=== PATIENT | male | born 1995 | race Caucasian/White ===

== ENCOUNTER 2021-01-01 16:32 | Emergency (ER) | payer OTHER ==
[~2021-01-01] VITALS: Ht 172.7 cm; Wt 78.7 kg
[2021-01-01 16:49] VITALS: BP 180/61
[2021-01-01] MEDS ORDERED: ONDANSETRON PF 4 MG/2 ML VIAL. IVP ONE (17:00)
[2021-01-01] MEDS ORDERED: ACETAMINOPHEN 325 MG TABLET PO ONE (17:00)
[2021-01-01] MEDS ORDERED: IOHEXOL 300 MG/ML 75 ML VIAL. IV ONE (17:00)
[2021-01-01] MEDS ORDERED: IV NORMAL SALINE 1,000ML 1,000 ML IV SCH (17:00)
--- NOTE | 2021-01-01 17:00 | PHYS DOC ---
Past History Past Surgical History: No Surgical History (ROSALIO STEARNS APRN) General Adult EDM: Chief Complaint: ABDOMINAL PAIN HPI: HPI: Patient is a 25-year-old male being seen in the ER for right lower quadrant abdominal pain that started today. Patient reports the pain radiates into his pelvis. He rates it 6 out of 10. Is worse with movement. No relieving factors. No treatment prior to arrival. Patient is also reporting fever and nausea. Patient denies vomiting, diarrhea, blood in stools, dysuria, hematuria, history of kidney stones. (ROSALIO STEARNS APRN) Review of Systems: Review of Systems: 14 body systems of the review of systems have been reviewed. See HPI for pertinent positive and negative responses, otherwise all other systems are negative, nonpertinent or noncontributory (ROSALIO STEARNS APRN) Allergies: Allergies: Allergies Coded Allergies Type Severity Reaction Last Updated Verified No Known Drug Allergies 01/01/21 No (ROSALIO STEARNS APRN) Physical Exam: PE: Constitutional: Well developed, well nourished, no acute distress, non-toxic appearance. [] HENT: Normocephalic, atraumatic, bilateral external ears normal, oropharynx moist, no oral exudates, nose normal. [] Eyes: PERRL, EOMI, conjunctiva normal, no discharge. [] Neck: Normal range of motion, no stridor Cardiovascular:Heart rate regular rhythm, no murmur [] Lungs & Thorax: Bilateral breath sounds clear to auscultation [] Abdomen: Bowel sounds normal, soft, right lower quadrant tenderness with palpation, negative Orange sign, negative Rovsing sign, no masses, no pulsatile masses. [] Skin: Warm, dry, no erythema, no rash. [] Back: No tenderness, bilateral CVA tenderness. [] Extremities: No tenderness, no cyanosis, no clubbing, ROM intact, no edema. [] Neurologic: Alert and oriented X 3, normal motor function, normal sensory function, no focal deficits noted. [] Psychologic: Affect normal, judgement normal, mood normal. [] (ROSALIO STEARNS APRN) Current Patient Data: Labs: Laboratory Tests Test 01/01/21 17:05 White Blood Count 11.8 x10^3/uL Red Blood Count 4.34 x10^6/uL Hemoglobin 13.9 g/dL Hematocrit 40.5 % Mean Corpuscular Volume 93 fL Mean Corpuscular Hemoglobin 32 pg Mean Corpuscular Hemoglobin Concent 34 g/dL Red Cell Distribution Width 12.9 % Platelet Count 226 x10^3/uL Neutrophils (%) (Auto) 91 % Lymphocytes (%) (Auto) 4 % Monocytes (%) (Auto) 4 % Eosinophils (%) (Auto) 0 % Basophils (%) (Auto) 0 % Neutrophils # (Auto) 10.7 x10^3uL Lymphocytes # (Auto) 0.5 x10^3/uL Monocytes # (Auto) 0.5 x10^3/uL Eosinophils # (Auto) 0.0 x10^3/uL Basophils # (Auto) 0.0 x10^3/uL Sodium Level 136 mmol/L Potassium Level 4.0 mmol/L Chloride Level 102 mmol/L Carbon Dioxide Level 25 mmol/L Anion Gap 9 Blood Urea Nitrogen 24 mg/dL Creatinine 1.2 mg/dL Estimated GFR (Cockcroft-Gault) 74.4 BUN/Creatinine Ratio 20 Glucose Level 115 mg/dL Calcium Level 8.8 mg/dL Total Bilirubin 0.6 mg/dL Aspartate Amino Transf (AST/SGOT) 45 U/L Alanine Aminotransferase (ALT/SGPT) 65 U/L Alkaline Phosphatase 99 U/L Total Protein 7.0 g/dL Albumin 4.1 g/dL Albumin/Globulin Ratio 1.4 Lipase 118 U/L Current Medications Medications (Trade) Dose Ordered Sig/Carlie Route PRN Reason Start Time Stop Time Status Last Admin Dose Admin Fentanyl Citrate (Fentanyl 2ml Vial) 50 mcg PRN Q15MIN PRN IV PAIN GREATER THAN 3/10 01/01/21 17:00 01/02/21 16:59 01/01/21 17:33 Sodium Chloride 1,000 ml @ 1,000 mls/hr Q1H IV 01/01/21 17:00 01/01/21 17:59 01/01/21 17:32 Ondansetron HCl (Zofran) 4 mg 1X ONCE IVP 01/01/21 17:00 01/01/21 17:03 DC 01/01/21 17:33 Acetaminophen (Tylenol) 650 mg 1X ONCE PO 01/01/21 17:00 01/01/21 17:03 DC 01/01/21 17:33 Iohexol (Omnipaque 300 Mg/ml) 75 ml 1X ONCE IV 01/01/21 17:00 01/01/21 17:03 DC 01/01/21 17:15 Info (Do NOT chart on this entry -- for MONITORING) 1 each PRN DAILY PRN MC SEE COMMENTS 01/01/21 17:15 01/03/21 17:14 Vital Signs: Vital Signs Date Time Temp Pulse Resp B/P (MAP) Pulse Ox O2 Delivery O2 Flow Rate FiO2 01/01/21 16:49 100.0 84 20 180/61 96 Room Air (ROSALIO STEARNS APRN) EKG: EKG: [] (ROSALIO STEARNS APRN) Radiology/Procedures: Radiology/Procedures: PROCEDURE: CT ABD PELV W/ IV CONTRST ONLY PQRS Compliance Statement: One or more of the following individualized dose reduction techniques were utilized for this examination: 1. Automated exposure control 2. Adjustment of the mA and/or kV according to patient size 3. Use of iterative reconstruction technique Exam performed: CT abdomen and pelvis with contrast HISTORY: Right lower quadrant abdominal pain DATE OF SERVICE: 01/01/2021. None available TECHNIQUE: Contiguous helical acquisitions are obtained through the abdomen and pelvis during intravenous administration of 75 cc of Omnipaque 300. Sagittal and coronal reformatted images are obtained and reviewed. FINDINGS: The lung bases are essentially clear. The visualized heart is normal. The liver, spleen, pancreas and gallbladder appear normal. Both adrenal glands and bilateral kidneys are normal in size with symmetric excretion of contrast via both kidneys. There is no hydronephrosis or nephrolithiasis. Aorta is normal in caliber without aneurysm. Small and large bowel loops are nondilated and unremarkable. There is scattered stool throughout the colon. Small portion of gas filled appendix is visualized, best seen on sagittal image 44 and 45/67, series 4. The urinary bladder is decompressed. The prostate gland, seminal vesicles and rectum appear normal. Interrogation of bone windows is unremarkable. IMPRESSION: No acute intra-abdominal or pelvic process seen. Scattered stool throughout the colon. Correlate clinically for constipation. Electronically signed by: Geeta Hooper MD (01/01/2021 5:49 PM) [facility] DICTATED AND SIGNED BY: GEETA HOOPER MD DATE: 01/01/21 1740 CC: ROSALIO STEARNS APRN; PCP,NO ~MTH0 0[] (ROSALIO STEARNS APRN) Heart Score: C/O Chest Pain: No Risk Factors: Risk Factors: DM, Current or recent (<one month) smoker, HTN, HLP, family history of CAD, obesity. Risk Scores: Score 0 - 3: 2.5% MACE over next 6 weeks - Discharge Home Score 4 - 6: 20.3% MACE over next 6 weeks - Admit for Clinical Observation Score 7 - 10: 72.7% MACE over next 6 weeks - Early Invasive Strategies (ROSALIO STEARNS APRN) Course & Med Decision Making: Course & Med Decision Making Pertinent Labs and Imaging studies reviewed. (See chart for details) [] Patient is a 25-year-old male being seen in the ER for right lower quadrant pain with nausea and a fever that started this afternoon. Work-up in the ER consisted of blood work, urinalysis, and CT scan of abdomen. Patient was treated with fluids, nausea medication, pain medication. Patient was noted to have mild leukocytosis with a white count of 11.8. Mild elevation in his liver enzymes. CT scan was negative for any acute findings. Due to patient's symptoms of nausea, fever, elevated liver enzymes he was tested for COVID-19 and will be notified of those results when they become available. I discussed with patient all findings and diagnostic testing as well as the need to follow-up with PCP for further evaluation and treatment or return to the ER if any new or worsening symptoms. Strict return precautions were also discussed at length. P atient voiced understanding and agreement with the plan. Patient is hemodynamically stable at the time of disposition. (ROSALIO STEARNS APRN) Course & Med Decision Making Did not see or evaluate patient. Agree with [employer]'s work-up and disposition per note. (CAMPOS BAH MD) Dragon Disclaimer: Dragon Disclaimer: This electronic medical record was generated, in whole or in part, using a voice recognition dictation system. (ROSALIO STEARNS APRN) Departure Departure: Impression: Primary Impression: Abdominal pain Qualified Codes: R10.31 - Right lower quadrant pain Additional Impression: Person under investigation for COVID-19 Disposition: HOME / SELF CARE / HOMELESS Condition: GOOD Referrals: PCP,NO (PCP) Patient Instructions: Abdominal Pain Additional Instructions: You were seen in the ER today for abdominal pain with nausea. You were noted to have a fever in the ER and this was treated. As we discussed, you had mild elevation in your liver enzymes. Given your symptoms of nausea, abdominal pain and elevated liver enzymes, you were tested for COVID-19. You will be notified of these results when they become available in approximately 2 days. Please follow isolation protocols at your facility. Continue to take Tylenol/ibuprofen for pain or fevers. You were noted to have some stool in your colon, so the addition of MiraLAX may be helpful to you. If you develop worsening of your abdominal pain, intractable nausea or vomiting, high fevers refractory to treatment, blood in your stools or vomit or any new or worsening concerns please return to the ER. EMERGENCY DEPARTMENT GENERAL DISCHARGE INSTRUCTIONS Thank you for coming to [facility] (ED) today and trusting us with you care. We trust that you had a positivie experience in our Emergency Department. If you wish to speak to the department management, you may call the director at [phone]. YOUR FOLLOW UP INSTRUCTIONS ARE FOLLOWS: 1. Do you have a private Doctor? If you do not have a private doctor, please ask for a resource list of physicians or clinics that may be able to assist you with follow up care. 2. The Emergency Physician has interpreted your x-rays. The X-Ray specialist will also review them. If there is a change in the findings, you will be notified in 48 hours when at all possible. 3. A lab test or culture has been done, your results will be reviewed and you will be notified if you need a change in treatment. ADDITIONAL INSTRUCTIONS AND INFORMATION: 1. Your care today has been supervised by a physician who is specially trained in emergency care. Many problems require more than one evaluation for a complete diagnosis and treatment. We recommend that you schedule your follow up appointment as recommended to ensure complete treatment of you illness or injury. If you are unable to obtain follow up care and continue to have a problem, or if your condition worsens, we recommend that you return to the ED. 2. We are not able to safely determine your condition over the phone nor are we able to give sound medical advice over the phone. For these safety reasons, if you call for medical advice we will ask you to come to the ED for further evaluation. 3. If you have any questions regarding these discharge instructions please call the ED at [phone]. SAFETY INFORMATION: In the interest of safety, wellness, and injury prevention; we encourage you to wear your sealbelt, if you smoke; quite smoking, and we encourage family to use a p rotective helmet for bicycling and other sporting events that present an increased risk for head injury. IF YOUR SYMPTOMS WORSEN OR NEW SYMPTOMS DEVELOP, OR YOU HAVE CONCERNS ABOUT YOUR CONDITION; OR IF YOUR CONDITION WORSENS WHILE YOU ARE WAITING FOR YOUR FOLLOW UP APPOINTMENT; EITHER CONTACT YOUR PRIMARY CARE DOCTOR, THE PHYSICIAN WHOSE NAME AND NUMBER YOU WERE GIVEN, OR RETURN TO THE ED IMMEDIATELY. ROSALIO STEARNS APRN Jan 01, 2021 17:00 CAMPOS BAH MD Jan 01, 2021 19:02
[2021-01-01] MEDS ORDERED: CONTRAST GIVEN. MC PRN (17:15)
[2021-01-01 17:20] LABS: BASO % 0 % (0-3); EOS % 0 % (0-3); HEMATOCRIT 40.5 % (39.0-53.0); HEMOGLOBIN 13.9 g/dL (13.0-17.5); LYMPH # 0.5 x10^3/uL (1.0-4.8); LYMPH % 4 % (24-48); MEAN CORPUSCULAR HEMOGLOBIN 32 pg (25-35); MEAN CORPUSCULAR HGB CONC 34 g/dL (31-37); MEAN CORPUSCULAR VOLUME 93 fL (79-100); MONO # 0.5 x10^3/uL (0.0-1.1); MONO % 4 % (0-9); NEUT # 10.7 x10^3uL (1.8-7.7); NEUT % 91 % (31-73); PLATELET COUNT 226 x10^3/uL (140-400); RED BLOOD COUNT 4.34 x10^6/uL (4.30-5.70); RED CELL DISTRIBUTION WIDTH 12.9 % (11.5-14.5); WHITE BLOOD COUNT 11.8 x10^3/uL (4.0-11.0)
[2021-01-01 17:27] LABS: CALCIUM 8.8 mg/dL (8.5-10.1); CREATININE 1.2 mg/dL (0.7-1.3); GFR 74.4
[2021-01-01 17:33] LABS: ALBUMIN 4.1 g/dL (3.4-5.0); ALBUMIN/GLOBULIN RATIO 1.4 (1.0-1.7); TOTAL BILIRUBIN 0.6 mg/dL (0.2-1.0)
--- NOTE | 2021-01-01 17:52 | RAD ---
PQRS Compliance Statement: One or more of the following individualized dose reduction techniques were utilized for this examinat ion: 1. Automated exposure control 2. Adjustment of the mA and/or kV according to patient size 3. Use of iterative reconstruction technique Exam performed: CT abdomen and pelvis with contrast HISTORY: Right lower quadrant abdominal pain DATE OF SERVICE: 01/01/2021. None available TECHNIQUE: Contiguous helical acquisitions are obtained through the abdomen and pelvis during intrave nous administration of 75 cc of Omnipaque 300. Sagittal and coronal reformatted images are obtained a nd reviewed. FINDINGS: The lung bases are essentially clear. The visualized heart is normal. The liver, spleen, pancreas and gallbladder appear normal. Both adrenal glands and bilateral kidneys are normal in size with symmetric excretion of contrast via both kidneys. There is no hydronephrosis or nephrolithiasis. Aorta is normal in caliber without aneurysm. Small and large bowel loops are nond ilated and unremarkable. There is scattered stool throughout the colon. Small portion of gas filled a ppendix is visualized, best seen on sagittal image 44 and 45/67, series 4. The urinary bladder is decompressed. The prostate gland, seminal vesicles and rectum appear normal. Interrogation of bone windows is unremarkable. IMPRESSION: No acute intra-abdominal or pelvic process seen. Scattered stool throughout the colon. Correlate clin ically for constipation. Electronically signed by: Geeta Hooper MD (01/01/2021 5:49 PM) [facility]
[2021-01-01 18:35] LABS: BACTERIA,URINE 0 /HPF (0-FEW); BILIRUBIN,URINE NEG (NEG); CLARITY,URINE CLEAR; COLOR,URINE YELLOW; GLUCOSE,URINE NEG (NEG); NITRITE,URINE NEG (NEG); RBC,URINE 0 /HPF (0-2); UROBILINOGEN,URINE 0.2 mg/dL (0.2 mg/dL); WBC,URINE 0 /HPF (0-4)
== END 2021-01-01 18:50 | disposition home or self-care (01) ==
LOC: ER 16:32
DX: R10.31 Right lower quadrant pain (principal); Z20.822 Contact with and (suspected) exposure to COVID-19
CPT/HCPCS: 36415; 74177; 80053; 81001; 83690; 85025; 96361; 96374; 96375; 99285; C9803; J2405; J3010; J7030; Q9967; U0003